=== PATIENT | male | born 1990 | race Caucasian/White ===

== ENCOUNTER 2017-10-25 13:40 | Outpatient (CLI) | payer BC | END 2017-10-25 13:41 | disposition home or self-care (01) | LOC: BICRAD 13:40 | PROVIDERS: ATTEND Student in an Organized Health Care Education/Training Program | DX: M54.5 Low back pain (principal) | CPT/HCPCS: 72100 ==

== ENCOUNTER 2017-11-14 08:23 | Outpatient (CLI) | payer BC ==
--- NOTE | 2017-11-14 10:37 | MRI ---
MRI LUMBAR SPINE WITHOUT IV CONTRAST: HISTORY: A 27-year-old male with a history of low back pain. FINDINGS: The L1-L2 and L2-L3 disks are unremarkable without evidence for significant stenosis. There are some ligament and facet hypertrophic changes. At L3-L4, there is desiccation change with a broad-based left paracentral protrusion, resulting in so me left ventral lateral recess stenosis and associated annular fissure, without significant foraminal stenosis. There are several small synovial cysts adjacent to the left facet joint. At L4-L5, generalized disk bulging with annular fissures with left lateral recess ventral stenosis wi thout significant foraminal stenosis. There is a probable right-sided pars defect at L4, although th e left pars region is poorly defined. The L5-S1 level is unremarkable. IMPRESSION: 1. Multilevel, variable severity lateral recess stenosis, most marked at L3-L4 and at L4-L5, with an nular fissures and small left-sided synovial cysts adjacent to the left facet joint at L3-L4. 2. Probable pars defect on the right side, at L4. 3. Other findings as above. POS: [facility]
== END 2017-11-14 08:24 | disposition home or self-care (01) ==
LOC: SCSMRI 08:23
PROVIDERS: ATTEND Student in an Organized Health Care Education/Training Program
DX: M54.5 Low back pain (principal); R93.8 Abnormal findings on diagnostic imaging of other specified body structures; M48.061 Spinal stenosis, lumbar region without neurogenic claudication; M51.26 Other intervertebral disc displacement, lumbar region; M71.38 Other bursal cyst, other site; Q05.7 Lumbar spina bifida without hydrocephalus
CPT/HCPCS: 72148

== ENCOUNTER 2019-04-06 08:26 | Emergency (ER) | payer BC, OTHER ==
[2019-04-06] MEDS ORDERED: Acetaminophen 500 MG TAB ONE (09:25)
[2019-04-06 10:25] LABS: HIV (1/2) Antibody/Antigen Non-Reactive (NonReactive); Hep C IgG Ab Non-Reactive (NonReactive); Hep C Index 0.15 S/CO (0-0.79)
[2019-04-06 10:27] LABS: HBSAB Concentration 84.76 mIU/mL; Hep B Surf AB Reactive (NonReactive)
== END 2019-04-06 09:43 | disposition home or self-care (01) ==
LOC: ERS 08:26
DX: Z77.21 Contact with and (suspected) exposure to potentially hazardous body fluids (principal)
CPT/HCPCS: 36415; 86706; 86803; 87389; 99283

== ENCOUNTER 2019-07-13 15:20 | Emergency (ER) | payer BC, OTHER ==
[2019-07-13] MEDS ORDERED: Rabies Vaccine Human 2.5 UNITS VIAL IM ONE (16:45)
== END 2019-07-13 18:19 | disposition home or self-care (01) ==
LOC: ERS 15:20
DX: S51.852A Open bite of left forearm, initial encounter (principal); S80.812A Abrasion, left lower leg, initial encounter; S60.413A Abrasion of left middle finger, initial encounter; I10 Essential (primary) hypertension; W54.0XXA Bitten by dog, initial encounter
CPT/HCPCS: 90375; 90471; 90472; 90675

== ENCOUNTER 2019-07-16 21:08 | Emergency (ER) | payer BC, OTHER ==
[2019-07-16] MEDS ORDERED: Rabies Vaccine Human 2.5 UNITS VIAL IM ONE (22:00)
== END 2019-07-16 22:08 | disposition home or self-care (01) ==
LOC: ER/OP 21:08
DX: Z23 Encounter for immunization (principal); Z85.71 Personal history of Hodgkin lymphoma
CPT/HCPCS: 90471; 90675

== ENCOUNTER 2019-07-20 08:04 | Emergency (ER) | payer BC ==
[2019-07-20] MEDS ORDERED: Rabies Vaccine Human 2.5 UNITS VIAL IM ONE (08:30)
== END 2019-07-20 08:54 | disposition home or self-care (01) ==
LOC: ER/OP 08:04
DX: Z23 Encounter for immunization (principal)
CPT/HCPCS: 90471; 90675; 96372

== ENCOUNTER 2019-07-27 05:46 | Emergency (ER) | payer OTHER ==
[2019-07-27] MEDS ORDERED: Rabies Vaccine Human 2.5 UNITS VIAL IM ONE (06:30)
== END 2019-07-27 06:59 | disposition home or self-care (01) ==
LOC: ER/OP 05:46
DX: Z29.14 Encounter for prophylactic rabies immune globulin (principal); S50.812D Abrasion of left forearm, subsequent encounter; W54.0XXD Bitten by dog, subsequent encounter
CPT/HCPCS: 90675; 99281

== ENCOUNTER 2019-09-27 05:05 | Emergency (ER) | payer OTHER ==
--- NOTE | 2019-10-01 14:52 | EKG ---
Test Reason : Blood Pressure : / mmHG Vent. Rate : 100 BPM Atrial Rate : 100 BPM P-R Int : 156 ms QRS Dur : 088 ms QT Int : 330 ms P-R-T Axes : 055 027 044 degrees QTc Int : 425 ms Normal sinus rhythm No STEMI Normal ECG Confirmed by TIMMY SEO M.D. ([id number]), commissioning editor AIYANA SMITH ([id number] on 10/01/2019 2:52:17 PM Referred By: Confirmed By:TIMMY SEO M.D.
== END 2019-09-27 05:40 | disposition home or self-care (01) ==
LOC: ERS 05:05
DX: R42 Dizziness and giddiness (principal); I10 Essential (primary) hypertension
CPT/HCPCS: 93005

== ENCOUNTER 2019-12-08 13:40 | Outpatient (CLI) | payer BC ==
--- NOTE | 2019-12-08 14:12 | ULT ---
Exam: Thyroid ultrasound HISTORY: Elevated TSH. COMPARISON: None. FINDINGS: Thyroid isthmus is 0.28 cm. Right thyroid lobe 3.7 x 1.7 x 1.9 cm. Left thyroid lobe 3.9 x 1.4 x 1.1 cm. Thyroid nodules: Right thyroid lobe: 0.4 x 0.4 x 0.4 cm solid nodule in the junction of the right thyroid lobe and ist hmus. 0.6 x 0.6 x 0.3 cm solid nodule in the lower pole of the right thyroid lobe. Left thyroid lobe: Solid echotexture nodules involving the left thyroid lobe and isthmus junction as well as the lower pole of the left thyroid lobe. These nodules measure between 0.4 x 0.2 x 0.5 cm, 0.5 x 0.3 x 0.5 cm and 0.4 x 0.5 x 0.7 cm. IMPRESSION: Multiple solid subcentimeter nodules involving the left and right thyroid lobe. TI-RADS level TR4, mo derately suspicious. Follow-up imaging in one year. Transcribed Date/Time: 12/08/2019 3:06 PM
== END 2019-12-08 13:41 | disposition home or self-care (01) ==
LOC: BICULT 13:40
PROVIDERS: ATTEND Family Medicine
DX: R79.89 Other specified abnormal findings of blood chemistry (principal); E04.2 Nontoxic multinodular goiter
CPT/HCPCS: 76536

== ENCOUNTER 2020-10-11 18:46 | Emergency (ER) | payer BC, OTHER ==
[2020-10-11] MEDS ORDERED: Ibuprofen 800 MG TAB ONE (19:58)
== END 2020-10-11 20:49 | disposition home or self-care (01) ==
LOC: ERS 18:46
DX: S83.92XA Sprain of unspecified site of left knee, initial encounter (principal); S53.402A Unspecified sprain of left elbow, initial encounter; S50.812A Abrasion of left forearm, initial encounter; S50.312A Abrasion of left elbow, initial encounter; R00.0 Tachycardia, unspecified; M25.552 Pain in left hip; I10 Essential (primary) hypertension; Z79.899 Other long term (current) drug therapy; Z85.71 Personal history of Hodgkin lymphoma; W19.XXXA Unspecified fall, initial encounter

== ENCOUNTER 2021-01-31 13:14 | Outpatient (CLI) | payer BC | END 2021-01-31 13:15 | disposition home or self-care (01) | LOC: BICULT 13:14 | PROVIDERS: ATTEND Family Medicine | DX: E04.1 Nontoxic single thyroid nodule (principal) | CPT/HCPCS: 76536 ==

== ENCOUNTER 2023-04-17 08:58 | Outpatient (CLI) | payer BC | END 2023-04-17 08:59 | disposition home or self-care (01) | LOC: BICRAD 08:58 | PROVIDERS: ATTEND Family Medicine | DX: M54.50 Low back pain, unspecified (principal); M43.16 Spondylolisthesis, lumbar region | CPT/HCPCS: 72120 ==